=== PATIENT | male | born 1970 | race Caucasian/White ===

== ENCOUNTER 2020-05-07 08:38 | Inpatient (IN) ==
--- NOTE | 2020-04-16 22:10 | PAT Medication Instructions ---
Medication Instructions Date of Service April 16, 2020 Home Medications Medication Instructions Recorded ibuprofen 800 mg PO Q8H PRN #30 tab 11/09/18 allopurinol 300 mg PO QAM ibuprofen 800 mg PO Q8H PRN meloxicam 7.5 mg PO QAM Men's Daily Gummies] 400 mcg PO HS valsartan 80 mg PO QAM ASK your surgeon for instructions ibuprofen 800 mg PO Q8H PRN meloxicam 7.5 mg PO QAM DO NOT take the morning of surgery valsartan 80 mg PO QAM Take morning of surgery With a small sip of water, OTHERWISE NOTHING TO EAT OR DRINK AFTER MIDNIGHT: allopurinol 300 mg PO QAM Take evening before surgery Men's Daily Gummies 400 mcg PO HS Other Notes If you have any questions please call us at [phone] or [phone] or [phone] or [phone]
--- NOTE | 2020-04-17 09:08 | Anesthesiology Consultation ---
Date of Service April 17, 2020 Assessment & Plan (1) Encounter for pre-operative examination: *Per PAT assessment on 04/17: travel screen negative. No known Covid positive contacts. No history of Covid testing. No current Covid related symptoms.* - ETOH use: 3-4 drinks/day (typically beer + bourbon). Per patient, no AM ETOH use. Patient reports no issue with NPO AM DOS. Chart Review Chart Review: Acceptable Risk for Surgery and Patient seen in Pre Admission Testing Teaching & Discussion Pre-Anesthesia Teaching/Discussion Notes: Instructed NPO after midnight before surgery,except medications with 15 cc of water. Medication instructions pro vided according to the PAT guidelines. History Surgery Operation Date: 05/07/20 09:20 Proposed Procedures p Right Anterior Total Hip Arthroplasty - Octavio Cox DO Height/Weight Height: 5 ft 9.5 in Weight: 93.3 kg Allergies Allergy/AdvReac Type Severity Reaction Status Date / Time No Known Allergies Allergy Verified 04/16/20 13:07 Medications Home Medications Medication Instructions Recorded Confirmed Last Taken allopurinol 300 mg PO QAM 11/09/18 04/16/20 Unknown ibuprofen 800 mg PO Q8H PRN #30 tab 11/09/18 04/16/20 Unknown meloxicam 7.5 mg PO QAM 04/16/20 04/16/20 Unknown multivit with min-folic acid 400 mcg PO HS 04/16/20 04/16/20 Unknown [Men's Daily Gummies] valsartan 80 mg PO QAM 04/16/20 04/16/20 Unknown Past Medical History Medical History Gout Hearing deficit Hypertension Exercise / Class Metabolic Activity II 4-5 Yardwork/Stairs/Walk up hill Past Family History Family History Other No family history of adverse response to anesthesia Past Surgical History Surgical History History of right knee surgery Past Anesthesia History No Hx of Anesthesia Complications and No Family Hx of Anesthesia Complications History of PONV No Hx of PONV and No Hx of Motion Sickness Social History Smoking Status: Former smoker Do You Dip or Chew Tobacco: No Smoking End Date: quit 13 yrs ago Hx Alcohol Use: Yes Alcohol type: beer and hard liquor alcohol intake frequency: 3 or more drinks per day (3-4 drinks (typically beer + bourbon)) Hx Substance Use: No substance use type: does not use Review of Systems Patient denies chest pain, shortness of breath, dyspnea on exertion, fever, chills, reflux, cough, wheezing, palpitations. Physical Exam Vital Signs VITALS BP 148/93 P 97 TEMP 98.6 SP02 100% RA RESP 16 PHYSICAL Full neck and c-spine range of motion. Full TMJ range of motion. TMD 3 finger breaths Mallampati Score 3 Dentition: intact, upper front repaired Lungs: clear throughout to auscultation Cardiac: regular rate and rhythm, no murmurs noted Spine: normal Carotid arteries: negative bruit Extremities: no edema Trimmed clark Testing Laboratory Results 04/17/20 09:30 04/17/20 09:30 PT 10.5 Seconds (9.0-12.0) 04/17/20 09:30 INR 1.0 (0.9-1.1) 04/17/20 09:30 APTT 28.5 Seconds (21.0-31.0) 04/17/20 09:30 Hemoglobin A1c 4.7 % (4.5-5.6) 04/17/20 09:30 Urine Color Yellow 04/17/20 09:30 Urine Appearance Clear (Clear) 04/17/20 09:30 Urine pH 5.0 (4.5-7.5) 04/17/20 09:30 Ur Specific [place] 1.021 (1.000-1.030) 04/17/20 09:30 Urine Protein Negative (Negative) 04/17/20 09:30 Urine Glucose (UA) Negative (Negative) 04/17/20 09:30 Urine Ketones Negative (Negative) 04/17/20 09:30 Urine Nitrite Negative (Negative) 04/17/20 09:30 Ur Leukocyte Esterase Negative (Negative) 04/17/20 09:30 Blood Type A Positive 04/17/20 09:30 Antibody Screen NEGATIVE 04/17/20 09:30 Electrocardiogram Date: 04/17/20 NSR at 94bpm. "Normal ECG." Chest X-Ray Date: 04/17/20 Findings: + NAD
--- NOTE | 2020-04-17 09:44 | XRay Report ---
XR chest Pre-admission PA/Lat CLINICAL HISTORY: 49 years-old Male presenting with preoperative assessment. TECHNIQUE: PA and lateral views of the chest were obtained. COMPARISON: 11/09/2018. FINDINGS: Cardiomediastinal silhouette normal. Lungs and pleural spaces clear. Osseous structures normal. Upper abdomen normal. IMPRESSION: 1. No acute cardiopulmonary disease. ACT 112: Negative or not required by law. Electronically signed by: Robert Chan M.D. 04/17/2020 9:42 AM
[2020-04-17 10:26] LABS: Appearance Urine Clear (Clear); Bilirubin Urine Negative (Negative); Blood Urine Negative (Negative); Color Urine Yellow; Glucose Urine UA Negative (Negative); Ketones Urine Negative (Negative); Leukocyte Esterase Urine Negative (Negative); Nitrite Urine Negative (Negative); Protein Urine Negative (Negative); Specific Gravity Urine 1.021 (1.000-1.030); Urobilinogen Urine Negative (Negative)
[2020-04-17 10:33] LABS: Albumin Level 3.6 gm/dl (3.4-5.0); BUN Creatinine Ratio 16.9 (10-20); Calcium 9.7 mg/dl (8.5-10.1); Creatinine Clr Calc Pharmacy 110.5 ml/min; Est GFR (African American) 112.8; Est GFR (Non-African American) 97.3; Potassium 4.4 mmol/L (3.5-5.1)
[2020-04-17 10:40] LABS: Basophils # (auto) 0.04 K/uL (0-0.2); Eosinophils % (auto) 2.4 %; Hematocrit (blood only) 44.9 % (42-52); Hemoglobin 15.1 g/dL (14.0-18.0); Immature Granulocytes # (auto) 0.02 K/uL (0.00-0.02); Immature Granulocytes % (auto) 0.5 %; Lymphocytes # (auto) 1.34 K/uL (1.2-3.4); Lymphocytes % (auto) 32.5 %; Mean Corpuscular Hemoglobin 32.1 pg (25-34); Mean Corpuscular Hgb Conc 33.6 g/dL (32-36); Mean Corpuscular Volume 95.5 fL (80-100); Monocytes # (auto) 0.35 K/uL (0.11-0.59); Monocytes % (auto) 8.5 %; Neutrophils # (auto) 2.27 K/uL (1.4-6.5); Neutrophils % (auto) 55.1 %; Platelet Count 183 K/uL (130-400); White Blood Count 4.12 K/uL (4.8-10.8)
[2020-04-17 10:41] LABS: Partial Thromboplastin Time 28.5 Seconds (21.0-31.0); Prothrombin Time 10.5 Seconds (9.0-12.0)
[2020-04-17 11:06] LABS: Estimated Average Glucose 88 mg/dl; Hemoglobin A1C 4.7 % (4.5-5.6)
--- NOTE | 2020-04-17 15:53 | Electrocardiogram Report ---
Test Reason : Blood Pressure : / mmHG Vent. Rate : 094 BPM Atrial Rate : 094 BPM P-R Int : 136 ms QRS Dur : 078 ms QT Int : 348 ms P-R-T Axes : 053 071 057 degrees QTc Int : 435 ms Normal sinus rhythm Normal ECG When compared with ECG of 09-NOV-2018 21:47, No significant change was found Confirmed by Gianni Arevalo ([id number]) on 04/17/2020 3:52:42 PM Referred By: Octavio Cox Confirmed By:Manish Arevalo
--- NOTE | 2020-05-06 09:25 | History & Physical Report ---
Date of Service May 07, 2020 Assessment & Plan (1) Degenerative joint disease of right hip: I have indicated the patient for right anterior total hip replacement. The risks, benefits and complications of surgery were explained to the patient which include but not limited to infection, acute blood loss, DVT/PE, injury to nerves, vessels, bone, soft tissue, arthrofibrosis, chronic pain, failure of the prosthesis, hip dislocation, leg length discrepancy, need for additional surgery, cardiac and pulmonary events and . The patient wished to proceed with surgery and informed consent was obtained at this time. We will plan for ASA BID post-operatively for DVT prophylaxis. Upon discharge the patient will be discharged home with home health services. Appropriate clearances by PCP were obtained. History of Present Illness Chief Complaint: Right hip pain/AVN/djd Primary Care Provider: Luis Armando Coates DO The patient is a 50 year old male who presents with complaints of severe right hip pain, DJD/AVN. The patient has failed outpatient conservative treatments to this point which included NSAIDs and a home exercise/walking program. The patient's pain and limited function have progressed to the point where they severely hinder their activities of daily living and they no longer tolerate exercise programs. They are requesting to proceed with total hip replacement surgery. Allergies Allergy/AdvReac Type Severity Reaction Status Date / Time No Known Allergies Allergy Verified 05/07/20 09:02 Home Medications Home Medications Medication Instructions Recorded Confirmed Type allopurinol 300 mg PO QAM 11/09/18 05/07/20 History ibuprofen 800 mg PO Q8H PRN #30 tab 11/09/18 05/07/20 Rx meloxicam 7.5 mg PO QAM 04/16/20 05/07/20 History multivit with min-folic acid 400 mcg PO HS 04/16/20 05/07/20 History [Men's Daily Gummies] valsartan 80 mg PO QAM 04/16/20 05/07/20 History Past Med/Surg History Medical History Gout Hearing deficit Hypertension Surgical History History of right knee surgery Family History Other No family history of adverse response to anesthesia Social History Preferred Language: [place] Communication Ability: Effective Photography Editor Required: No Beliefs That Will Affect Care: None Current Living Situation: Spouse Other Information That Helps Us Care for You: No Feels Safe at Home: Yes Safety Concerns: Feels Safe At This Time Smoking Status: Former smoker Do You Dip or Chew Tobacco: No ; Smoking End Date: quit 13 yrs ago ; Second Hand Exposure: Yes (father smoked) ; Tobacco Cessation Education Requested by Patient: No Hx Alcohol Use: Yes Alcohol type: beer and hard liquor Hx Substance Use: No Review of Systems Review of Systems: All systems reviewed & are unremarkable except as noted in HPI & below Constitutional: as per Subjective / HPI Physical Exam Physical Exam: RLE NVSI +EHL/FHL/TA/GS SILT grossly, +2 DP pulse, compartments soft NT, limited painful ROM of the hip, antalgic gait. Constitutional: WD/WN, vitals as above Eyes: PERRL, conjunctivae normal, anicteric sclerae ENMT: external ear and nose normal, oropharynx normal Neck: trachea midline, no thyromegaly Respiratory: normal respiratory effort, lungs clear to auscultation Cardiovascular: RRR, no murmur, no edema Gastrointestinal (Abdomen): normal bowel sounds, soft, nontender, no hepatosplenomegaly Musculoskeletal: no cyanosis or clubbing, extremities motor strength 5/5 Skin: no rashes, warm and dry Neurologic: patellar DTR's 2+ bilat, sensation intact Psychiatric: A+Ox3, euthymic affect Lymphatic: no cervical or axillary lymphadenopathy Results & Data Results & Data ([facility]) Diagnostic Findings Multiple views of the hip demonstrates severe DJD with complete loss of the joint space. AVN involving the femoral head with cortical irregularity and collapse, +osteophytes, +sclerosis, +subchondral cysts.
[~2020-05-07 08:38] MED LIST: ACETAMINOPHEN 500 MG TAB PO SCH; BUPIVACAINE 0.5 % 5 MG/1 ML PF 10ML VIAL ONE; CEFAZOLIN 2000MG 2,000 MG/15 ML SYR IV SCH; CeleBREX 200 MG CAP PO SCH; FAMOTIDINE 20 MG TAB PO SCH; GABAPENTIN 900 MG DOSE PO SCH; LR 15ML/HR IV SCH; LR 500ML BOLUS, THEN 15ML/HR IV SCH; OXYCODONE HCL 10 MG TABCR (OXYCONTIN) PO SCH; ROPIVACAINE 0.5% HCL/PF 150 MG, BUPIVACAINE 0.5% MPF 30 ML, EPINEPHrine 30MG/30ML (OR U... INSTIL SCH; TRANEXAMIC ACID 1,000 MG **IV Intra-op IV SCH; TRANEXAMIC ACID 1,000 MG **IV Pre-op IV SCH; dexAMETHasone 4 MG TAB PO SCH
--- NOTE | 2020-05-07 09:15 | History & Physical Bridge Note ---
Date of Service May 07, 2020 History & Physical Bridge Note I have examined the patient, reviewed the History & Physical and in the interval since the performance of the History & Physical I have noted the following changes of clinical significance: no changes noted
[2020-05-07] MEDS ORDERED: PROPOFOL IV EMULSION 10 MG/ML 20 ML VIAL IV ONE (10:01)
[2020-05-07] MEDS ORDERED: LIDOCAINE HCL 2% 2 ML VIAL/AMP(20MG/ML) INFIL ONE (10:01)
[2020-05-07] MEDS ORDERED: MIDAZOLAM HCL 1 MG/ML 2ML VIAL ONE (10:01)
[2020-05-07] MEDS ORDERED: ORTHO JOINT ANESTHETIC ONE (10:21)
[2020-05-07] MEDS ORDERED: BACITRACIN INJ 50,000 UNIT VIAL ONE (10:21)
[2020-05-07] MEDS ORDERED: fentaNYL citrate 100 MCG/2 ML VIAL IV PRN (10:31)
[2020-05-07] MEDS ORDERED: ATROPINE SULFATE 0.1 MG/ML 10ML SYR IV PRN (10:31)
[2020-05-07] MEDS ORDERED: ePHEDrine sulfate 50 MG/ML AMP IV PRN (10:31)
[2020-05-07] MEDS ORDERED: ONDANSETRON INJ 2 MG/ML 2 ML VIAL IV PRN ×2 (10:31→14:13)
--- NOTE | 2020-05-07 12:45 | Post Operative Brief Note ---
Immediate Post Op Note v1 Date of Surgery May 07, 2020 Pre & Post Diagnosis Operation Date: 05/07/20 11:10 Pre-Op Diagnosis: Right Hip: Degenerative Joint Disease and Avascular Necrosis Post-Op Diagnosis: Right Hip: Degenerative Joint Disease and Avascular Necrosis I identified the patient and participated in the time-out.: Yes Procedure Operation Date: 05/07/20 11:10 Actual Procedures p Right Anterior Total Hip Arthroplasty--Uncemented(Right) - Octavio Cox DO Surgeon Octavio Cox DO Centrifugal Wax Molder Alfredo singer Estimated Blood Loss 135 Findings Consistent with Post-Op Diagnosis Fluids 1500 cc LR Specimens Femoral head Anesthesia Type Spinal MAC Complications none Disposition Disposition: Recovery Room Overlapping Procedure I was present for: the critical portions of procedure. I was immediately available: during the entire case. Back up surgeon: was not required during procedure.
--- NOTE | 2020-05-07 12:47 | Operative Report ---
Post Operative Report Pre & Post Diagnosis Operation Date: 05/07/20 11:10 Pre-Op Diagnosis: Right Hip: Degenerative Joint Disease and Avascular Necrosis Post-Op Diagnosis: Right Hip: Degenerative Joint Disease and Avascular Necrosis I identified the patient and participated in the time-out.: Yes Procedure Operation Date: 05/07/20 11:10 Actual Procedures p Right Anterior Total Hip Arthroplasty--Uncemented(Right) - Octavio Cox DO Surgeon Octavio Cox DO Bleaching Machine Operator Alfredo singer Estimated Blood Loss 135 Findings Consistent with Post-Op Diagnosis Fluids 1500 cc LR Specimens Femoral head Anesthesia Type Spinal MAC Complications none Disposition Disposition: Recovery Room Indications The patient is a 50-year-old male who presents with severe progressive right hip AVN/DJD who has failed outpatient conservative treatments. I indicated the patient for a anterior total hip replacement and the risks and benefits were explained in detail which include but not limited to infection, bleeding, blood clot, damage to surrounding bone, nerves, vessels, soft tissue, hip dislocation, failure of the prosthesis, leg length discrepancy, need for additional surgery and . The patient agreed to proceed with replacement of the hip and informed consent was obtained. Appropriate clearances were obtained. Description of Procedure COMPONENTS USED: [employer] hip system: Acetabulum size 52, femur size 6 high offset, femoral head 36-3, liner 5236, acetabular screw 25 mm x 1. DESCRIPTION OF PROCEDURE: Following satisfactory spinal anesthesia, the patient was placed supine on the OR table. The left leg was placed in the well leg romero and the right leg in the traction device. The right leg was prepared with ChloraPrep and draped sterilely. A surgical timeout was performed, patient identified and site lobito verified. Appropriate antibiotics were given. A standard anterior approach in the interval between the sartorius and tensor muscles was performed. Dissection was carried down through subcutaneous tissues. Electrocautery was utilized for hemostasis. Circumflex femoral vessels were identified, tied and ligated. The anterior capsular fat pad was removed and the capsulotomy was performed revealing the arthritic femoral neck and head. A femoral neck cut was made with reciprocating saw and the bone fragments removed. The acetabular self-retraining retractor was placed. Acetabular reaming was completed under fluoroscopic guidance, a 52 shell was impacted into an anatomic position and secured with a dome screw. Local anesthetic was placed and following irrigation, the polyethylene liner was placed. The femur was placed into position of external rotation, extension and a dduction. Femoral canal was prepared up to the size 6 high offset. Trial reduction with a 36 -3 neck length head showed good soft tissue tension, leg lengths restored, and good fit and fill of the proximal canal using fluoroscopic landmarks. The hip was dislocated. The trial component was removed. The final implant was placed. The hip was irrigated with sterile saline solution and reduced. A Betadine soak was performed. After 3 minutes, the hip was once more irrigated with copious sterile saline solution with bacitracin. Danay-incisional soft tissue was injected utilizing [place] [employer]ix which includes a combination of Ropivicaine 0.5% 150mg, Bupivicaine 0.5%/Epinephrine 1:200,000 30ml, Toradol 30mg, Dexamethasone 4mg, Ketamine 10mg, Clonidine 100mcg and NSS 30ml solution. The capsule was then closed with 1-0 Vicryl interrupted figure of eight sutures. The fascia was closed with a running suture of #1 Vicryl, the subcutaneous tissues with 2-0 Vicryl and the skin with a running subcuticular stitch of 3-0 V-Loc. Dermabond prineo and a dry dressing were applied. The patient tolerated the procedure well and was transported to PACU in stable condition. Due to the complex nature of the procedure, the entire surgery was performed with the operational assistance of Alfredo singer PA-C. The technical support assistant, under direct supervision, was involved in the actual performance of all aspects of the surgical procedure including patient positioning, hemostasis, tissue retraction, instrument management and wound closure. I attest to the content of the Intraoperative Record and any orders documented therein. Any exceptions are noted below.
--- NOTE | 2020-05-07 13:00 | Fluoroscopy Report ---
FL hip RT 1V CLINICAL HISTORY: RIGHT ANTERIOR HIP COMPARISON STUDY: None. FLUOROSCOPY TIME: 42 seconds. FLUOROSCOPIC IMAGES: 2 FINDINGS: Fluoroscopy was provided for a total right hip arthroplasty. Hardware is intact. There are no unexpected radiopaque foreign bodies. Acetabular screw is noted. No fracture is identified. IMPRESSION: Fluoroscopy provided for total right hip arthroplasty. ACT 112: Negative or not required by law. Electronically signed by: Abisai Hernandes M.D. 05/07/2020 12:59 PM
--- NOTE | 2020-05-07 13:30 | XRay Report ---
XR hip 1V RT w pelvis HISTORY: 50 years-old Male IN PACU - A/P PELVIS and LATERAL HIP right hip total joint arthroplasty COMPARISON: Fluoroscopic images of the right hip of same day TECHNIQUE: Single AP view of the pelvis with crosstable lateral view of the right hip FINDINGS: Right hip total joint arthroplasty demonstrates satisfactory alignment. Expected postoperative swelli ng with deep tissue air surrounds the right hip. No acute fracture, dislocation or opaque foreign bod y. There is at least mild left hip osteoarthritis. IMPRESSION: Satisfactory alignment of the right hip total joint arthroplasty. ACT 112: Negative or not required by law. The above report was generated using voice recognition software. It may contain grammatical, syntax o r spelling errors. Electronically signed by: Russel Meraz M.D. 05/07/2020 1:28 PM
[2020-05-07] MEDS ORDERED: OXYCODONE HCL IR 5 MG TAB (IMMEDIATE RELEASE) PO PRN (14:13)
[2020-05-07] MEDS ORDERED: METOCLOPRAMIDE HCL INJ 5 MG/ML 2 ML VIAL IV PRN (14:13)
[2020-05-07] MEDS ORDERED: MAGNESIUM HYDROXIDE SUSP 30 ML UDC PO PRN (14:13)
[2020-05-07] MEDS ORDERED: HYDROmorphone INJ 0.5 MG/0.5 ML SYR IV PRN (14:13)
[2020-05-07] MEDS ORDERED: SODIUM CHLORIDE 0.9% 1000ML 1,000 ML IV SCH (14:13)
[2020-05-07] MEDS ORDERED: bisacodyL 10 MG SUPP PR PRN (14:13)
[2020-05-07] MEDS ORDERED: NALOXONE HCL 0.4 MG/1 ML VIAL/CARP IV PRN (14:13)
--- NOTE | 2020-05-07 14:26 | Anesthesiology Progress Note ---
Date of Service May 07, 2020 Anesthesia Post Procedure Vital Signs Vital Signs: Temp Pulse Pulse Pulse Resp BP Pulse Ox 05/07/20 14:00 36.4 C L 83 16 166/67 H 05/07/20 13:45 79 16 135/90 96 05/07/20 13:35 36.6 C 73 19 133/95 96 05/07/20 13:25 82 22 142/91 H 96 05/07/20 13:15 79 19 146/93 H 96 05/07/20 13:05 82 18 131/99 98 05/07/20 12:59 36.4 C L 90 17 148/90 H 99 05/07/20 09:29 36.8 C 92 H 18 153/99 H 96 Pain Intensity Right Hip: Pain Intensity: 0 Transfer of Care Handoff Completed per policy Notes Mental Status: alert / awake / arousable and participated in evaluation Patient Amnestic to Procedure: Yes Nausea / Vomiting: adequately controlled Pain: adequately controlled Airway Patency, RR, SpO2: stable & adequate BP & HR: stable & adequate Hydration State: stable & adequate Neuraxial Anesthesia: was administered and sensory block is resolving Anesthetic Complications: no major complications apparent and Pt Satisfied with anesthetic care
[2020-05-07] MEDS: ACETAMINOPHEN 500 MG TAB PO SCH ×2 (14:49→20:49)
--- NOTE | 2020-05-07 15:42 | Orthopedic Progress Note ---
Date of Service May 07, 2020 Assessment & Plan (1) Degenerative joint disease of right hip: s/p Right anterior ELIAS -ancef x 24 -DVT ppx: SCDs, TEDs, ASA BID -WBAT RLE -PT/OT -PO XR demonstrates well aligned well fixed total hip prothesis without fracture/dislocation -am labs -DC planning Admission and Anticipated Discharge Date Admission Date: May 07, 2020 Subjective Post Operative Progress Note Patient seen sitting up in bed, comfortable, denies complaints, pain well controlled, no acute issues. Still feeling effects of spinal anesthesia. Review of Systems Review of Systems: All systems reviewed & are unremarkable except as noted in HPI & below Constitutional: as per Subjective / HPI Physical Exam Physical Exam: RLE limited secondary to spinal anesthesia, +2 DP pulse, compartment soft NT, dressing CDI Constitutional: WD/WN, vitals as above Results & Data ([facility]) Vital Signs (Past 12 Hours) Vital Signs Temp Pulse Pulse Pulse Pulse Resp BP 05/07/20 15:10 36.7 C 97 H 18 155/91 H 05/07/20 14:30 83 16 163/95 H 05/07/20 14:00 36.4 C L 83 16 166/67 H 05/07/20 13:45 79 16 135/90 05/07/20 13:35 36.6 C 73 19 133/95 05/07/20 13:25 82 22 142/91 H 05/07/20 13:15 79 19 146/93 H 05/07/20 13:05 82 18 131/99 05/07/20 12:59 36.4 C L 90 17 148/90 H 05/07/20 09:29 36.8 C 92 H 18 153/99 H Pulse Ox 05/07/20 15:10 97 05/07/20 14:30 94 05/07/20 14:00 05/07/20 13:45 96 05/07/20 13:35 96 05/07/20 13:25 96 05/07/20 13:15 96 05/07/20 13:05 98 05/07/20 12:59 99 05/07/20 09:29 96
[2020-05-07] MEDS: KETOROLAC 30 MG/ML VIAL IV SCH ×2 (16:51→20:49)
[2020-05-07] MEDS: CEFAZOLIN 2000MG 2,000 MG/15 ML SYR IV SCH (17:16)
[2020-05-07] MEDS: VALSARTAN 80 MG TAB PO SCH (18:41)
[2020-05-07] MEDS: DOCUSATE SODIUM 100 MG CAP PO SCH (20:49)
[2020-05-07] MEDS ORDERED: SENNA 8.6 MG TAB PO SCH (21:00)
[2020-05-08] MEDS: KETOROLAC 30 MG/ML VIAL IV SCH ×2 (03:15→11:25)
[2020-05-08] MEDS: CEFAZOLIN 2000MG 2,000 MG/15 ML SYR IV SCH (03:15)
[2020-05-08] MEDS: ACETAMINOPHEN 500 MG TAB PO SCH ×2 (05:39→13:11)
[2020-05-08 06:26] LABS: Basophils # (auto) 0.01 K/uL (0-0.2); Basophils % (auto) 0.1 %; Hemoglobin 13.4 g/dL (14.0-18.0); Immature Granulocytes # (auto) 0.02 K/uL (0.00-0.02); Immature Granulocytes % (auto) 0.2 %; Lymphocytes # (auto) 0.78 K/uL (1.2-3.4); Lymphocytes % (auto) 7.3 %; Mean Corpuscular Hemoglobin 31.8 pg (25-34); Mean Corpuscular Hgb Conc 33.5 g/dL (32-36); Mean Corpuscular Volume 94.8 fL (80-100); Monocytes # (auto) 0.83 K/uL (0.11-0.59); Monocytes % (auto) 7.7 %; Neutrophils % (auto) 84.7 %; Platelet Count 188 K/uL (130-400); RDW Coefficient of Variation 11.9 % (11.5-14.5); RDW Standard Deviation 40.9 fL (36.4-46.3); Red Blood Count 4.22 M/uL (4.7-6.1); White Blood Count 10.74 K/uL (4.8-10.8)
[2020-05-08 07:00] LABS: BUN Creatinine Ratio 23.6 (10-20); Calcium 8.4 mg/dl (8.5-10.1); Creatinine Clr Calc Pharmacy 119.8 ml/min; Est GFR (African American) 119.5; Est GFR (Non-African American) 103.1; Potassium 3.9 mmol/L (3.5-5.1)
--- NOTE | 2020-05-08 07:33 | Orthopedic Progress Note ---
Date of Service May 08, 2020 Assessment & Plan (1) Degenerative joint disease of right hip: s/p Right anterior ELIAS POD#1 -ancef x 24 -DVT ppx: SCDs, TEDs, ASA BID -WBAT RLE -PT/OT -PO XR demonstrates well aligned well fixed total hip prothesis without fracture/dislocation -am labs - as above, hgb 13.4 -DC planning - home with HH Admission and Anticipated Discharge Date Admission Date: May 07, 2020 Subjective Post Operative Progress Note Patient seen sitting up in bed, comfortable, denies complaints, pain well controlled, no acute issues. Denies F/C/N/V/SOB/CP. Review of Systems Review of Systems: All systems reviewed & are unremarkable except as noted in HPI & below Constitutional: as per Subjective / HPI Physical Exam Physical Exam: RLE NVSI +EHL/FHL/TA/GS SILT grossly, +2 DP pulse, compartments soft NT, dressing cdi. Constitutional: WD/WN, vitals as above Results & Data ([facility]) Vital Signs (Past 12 Hours) Vital Signs Temp Pulse Resp BP Pulse Ox 05/08/20 07:11 36.7 C 80 16 147/90 H 98 05/08/20 02:54 36.8 C 80 16 137/86 98 05/08/20 00:09 36.6 C 81 16 141/89 H 96 Laboratory Results 05/08/20 05/08/20 Range/Units 05:44 05:44 WBC 10.74 (4.8-10.8) K/uL RBC 4.22 L (4.7-6.1) M/uL Hgb 13.4 L (14.0-18.0) g/dL Hct 40.0 L (42-52) % MCV 94.8 (80-100) fL MCH 31.8 (25-34) pg MCHC 33.5 (32-36) g/dL RDW Std Deviation 40.9 (36.4-46.3) fL RDW Coeff of [place] 11.9 (11.5-14.5) % Plt Count 188 (130-400) K/uL MPV 10.0 (7.4-10.4) fL Immature Gran % (Auto) 0.2 % Neut % (Auto) 84.7 % Lymph % (Auto) 7.3 % [place] % (Auto) 7.7 % Eos % (Auto) 0.0 % Baso % (Auto) 0.1 % Immature Gran # (Auto) 0.02 (0.00-0.02) K/uL Neut # (Auto) 9.10 H (1.4-6.5) K/uL Lymph # (Auto) 0.78 L (1.2-3.4) K/uL [place] # (Auto) 0.83 H (0.11-0.59) K/uL Eos # (Auto) 0.00 (0-0.5) K/uL Baso # (Auto) 0.01 (0-0.2) K/uL Sodium 138 (136-145) mmol/L Potassium 3.9 (3.5-5.1) mmol/L Chloride 104 (98-107) mmol/L Carbon Dioxide 28 (21-32) mmol/L Anion Gap 6.0 (3-11) BUN 19 H (7-18) mg/dl Creatinine 0.82 (0.6-1.4) mg/dl Est Cr Clr Drug Dosing 119.8 ml/min Est GFR ( Amer) 119.5 Est GFR (Non-Af Amer) 103.1 BUN/Creatinine Ratio 23.6 H (10-20) Glucose 139 H (70-99) mg/dl Calcium 8.4 L (8.5-10.1) mg/dl
[2020-05-08] MEDS: VALSARTAN 80 MG TAB PO SCH (08:39)
[2020-05-08] MEDS: DOCUSATE SODIUM 100 MG CAP PO SCH (08:39)
[2020-05-08] MEDS ORDERED: VALSARTAN 80 MG TAB PO SCH (09:00)
[2020-05-08] MEDS ORDERED: allopurinoL 300 MG TAB PO SCH (09:00)
[2020-05-08] MEDS ORDERED: ASPIRIN 325 MG ECTAB PO SCH (09:00)
[2020-05-08] MEDS ORDERED: MULTIVITAMIN TAB PO SCH (09:00)
--- NOTE | 2020-05-08 17:03 | Discharge Summary ---
Date of Service May 08, 2020 Admission HPI Per Admitting Provider The patient is a 50 year old male who presents with complaints of severe right hip pain, DJD/AVN. The patient has failed outpatient conservative treatments to this point which included NSAIDs and a home exercise/walking program. The patient's pain and limited function have progressed to the point where they severely hinder their activities of daily living and they no longer tolerate exercise programs. They are requesting to proceed with total hip replacement surgery. Principal Diagnosis Right anterior total hip replacement -Right hip AVN/DJD Discharge Exam RLE NVSI +EHL/FHL/TA/GS SILT grossly, +2 DP pulse, compartments soft NT, dressing cdi. Constitutional WD/WN, vitals as above Discharge Data Allergies Allergy/AdvReac Type Severity Reaction Status Date / Time No Known Allergies Allergy Verified 05/07/20 09:02 Consultations 05/08/20 08:00 Consult Case Management - Discharge Planning Routine Procedures Performed Operation Date: 05/07/20 11:10 Actual Procedures p Right Anterior Total Hip Arthroplasty--Uncemented(Right) - Octavio Cox DO Ordered Studies 05/07/20 11:00 FL hip RT 1V Routine 05/07/20 11:10 FL fluoroscopy <1hr Routine Hospital Course (1) Degenerative joint disease of right hip: The patient is a 50 -year-old male who presents with long standing history of severe right hip AVN/DJD and failed outpatient conservative treatments. The patient's symptoms have progressed to the point where it has been difficult to perform even normal activities of daily living. I indicated the patient for a right anterior total hip arthroplasty, the risks, benefits and complications of the procedure include but not limited to infection, bleeding, damage to bone, nerves, vessels, surrounding soft tissue, may develop blood clots, loss of function, leg length discrepancy, dislocation, failure of the components, loosening of the components, the need for additional surgery and . The patient wished to proceed with surgery at this time and informed consent was obtained. Hospital Course: On 05/07/20 the patient was taken to the operating room, adequate anesthesia administered and underwent a right anterior total hip arthroplasty. The patient tolerated the procedure well and was taken to the PACU in stable condition. Post-operatively the patient was started on a DVT ppx medication and given appropriate IV antibiotics. Consults were placed to physical therapy, occupational therapy and case management. On POD#1, the patient did well overnight and their pain was well controlled. Labs were drawn and the Hgb was 13.4. The patient progressed well with PT. Dressings were changed at this time and the incision was clean, dry and intact. The patients hospital stay was relatively uneventful and they were deemed stable by the orthopedic team and consultants to be discharged home with HH on 05/08/20. Discharge Instructions: Upon discharge the patient may weight bear as tolerates through their operative extremity. They were instructed to keep the incision clean and dry at all times. The patient may shower but should not submerge the incision, avoid bat mely, pools and hot tubes. The patient was given a script for pain medication and should take as instructed. The patient was given a script for DVT ppx ASA BID and should take as directed. The patient was instructed to not drive or travel for long distances until cleared to do so. If the patient develops any symptoms of fevers, chills, nausea, vomiting, increased redness, swelling, pain or drainage from the surgical site, they should notify the office and/or proceed to the nearest emergency room. The patient should follow up in 10-14 days after surgery for their routine post-operative follow-up appointment and should call the office to confirm the date and time. s/p Right anterior ELIAS POD#1 -ancef x 24 -DVT ppx: SCDs, TEDs, ASA BID -WBAT RLE -PT/OT -PO XR demonstrates well aligned well fixed total hip prothesis without fracture/dislocation -am labs - as above, hgb 13.4 -DC planning - home with Total Time Total Time Spent Total Time Spent (In Minutes): 30 Discharge Plan Discharge Items Patient Disposition: Home - Home Health Services Reason For Visit: Osteoarthritis, Right Hip Discharge Diagnosis: Right anterior total hip replacement Condition on Discharge: Good Activity: Per Instructions section Lifting: Wait until after follow-up appointment Bathing: Keep incision dry Bathing Comment: No bathing, pools or hot tubs. Sexual Activity: Wait until after follow-up appointment Exercise/Sports: Wait until after follow-up appointment Driving/Machine Use: No driving Weightbearing: Full weightbearing Non-emergency contact: Primary Care Provider and Surgeon Call non-emergency contact if: you have any medication questions, your symptoms worsen, your pain is not controlled, your pain is worsening, your pain is unusual for you, your pain is concerning for you, you have a fever, your temperature is above 101, your wound has increased redness, your wound has increased drainage and your wound pain has increased Follow-up/Referrals: Luis Armando Coates, [Primary Care Provider] - Diet: Regular Addtl Attending Provider Instructions: ACTIVITY RECOMMENDATIONS: SELF CARE INSTRUCTIONS AFTER TOTAL HIP REPLACEMENT : Direct Anterior Approach Until the incision and soft tissues around your hip have healed, there is a possibility that the hip prosthesis could dislocate. A. Hip flexion ( Up & Down out of chair or steps ) may be difficult. This is normal. B. Numbness in front of the thigh is also normal for a few weeks. C. Use hand rails when walking on stairs. D. Wear low heeled shoes with non-slip soles. E. Be sure that your floors are free of things that could trip you - throw rugs, electrical cords, small objects. Avoid wet and waxed floors, especially with crutches and canes. F. Try to walk several times a day with rest periods between. G. Continue with all the exercises taught to you in the hospital. Again, make walking a part of your daily routine. SPECIAL CARE INSTRUCTIONS: VERY IMPORTANT TO READ AND REVIEW A. You may still be at risk for phlebitis and blood clots. 1. Wear surgical stockings (ARIK hose) for 2 weeks after surgery to improve circulation and reduce swelling. 2. Take Aspirin 325mg twice daily for 4 weeks or as directed by your doctor. This is your blood thinner. 3. High risk patients may be prescribed a stronger blood thinner if necessary. 4. If you are on Coumadin normally, your family doctor/laborer heading should monitor your blood work. Expect a phone call the day of or the day after bloodwork is drawn to adjust your dosage. B. You must take antibiotics before having dental work, bladder, bowel and other surgery. Your doctor will provide you with a permanent card to carry describing precautions. C. Call [facility] if you have a fever, redness or swelling around the incision, cloudy drainage from incision, or sudden increase in pain in your hip, not relieved by your regular pain medication. D. Please call the office at if you have any concerns or questions about your operation or recovery. * YOU MAY SHOWER, NO TUB BATHS UNTIL CLEARED BY YOUR DOCTOR. - Keep an extra close eye on the top portion of your incision. Be sure to keep clean & dry. * WEAR ARIK HOSE 20 HOURS PER DAY FOR 2 WEEKS. * YOU MAY PROGRESS FROM A WALKER, TO A CANE, TO INDEPENDENT AT YOUR OWN PACE. * MOST PATIENTS WILL HAVE HOME NURSING FOR THERAPY. IF YOU DECIDE TO DO OUTPATIENT PHYSICAL THERAPY, PLEASE SCHEDULE THIS 3 TIMES PER WEEK. * DERMABOND Prineo- This is a mesh tape dressing that is covered with glue. It should remain in place until the incision is properly healed, usually 10-14 days. This dressing is designed to naturally slough off. You may trim the excess mesh tape as it peels off. Incision may be briefly wet in a shower. Dry immediately by blotting with a clean, dry towel. Do not bath or swim until instructed by your doctor. Do not scratch, rub, or pick at the dressing. Do not apply any topical ointments or lotions until dressing is completely removed and/or instructed by your doctor. There may be a small piece of suture material at one end of your incision. Do not pull or trim this. If it is bothersome or catching on clothing, you may cover it with a band-aid. FOLLOW UP VISIT: If appointment is not already scheduled: Please call [facility] to make a follow-up appointment for 2 weeks after your surgery at . Pending Studies at Discharge: No Stand-Alone Forms: [facility], Opioid Pain Management, Smoking Cessation Medications and DC Order Prescriptions: New celecoxib [Celebrex] 200 mg Capsule 200 mg PO BID PRN (Reason: pain/inflammation) Qty: 28 RF: 0 acetaminophen 500 mg Tablet 1,000 mg PO Q8 PRN (Reason: pain) Qty: 90 RF: 0 aspirin 325 mg Tablet,Delayed Release (Dr/Ec) 325 mg PO BID Qty: 56 RF: 0 oxycodone 5 mg Tablet 5 mg PO Q6H MDD 4 PRN (Reason: pain) Qty: 30 RF: 0 sennosides [Senokot] 8.6 mg Tablet 17.2 mg PO HS PRN (Reason: constipation) Qty: 28 RF: 0 Continued valsartan 80 mg Tablet 80 mg PO QAM RF: 0 Men's Daily Gummies 200 mcg Tablet,Chewable 400 mcg PO HS RF: 0 allopurinol 300 mg tablet 300 mg PO QAM RF: 0 Discontinued meloxicam 7.5 mg Tablet 7.5 mg PO QAM RF: 0 ibuprofen 800 mg tablet 800 mg PO Q8H PRN (Reason: pain) Qty: 30 RF: 0 Discharge Orders: Discharge Order (Routine); Ordered 05/08/20 Ordered By: Octavio Felton/Other Patient Handouts: DVT, ED ANTI-EMBOLISM STOCKINGS Admission Data Admit Date/Time: 05/07/20 13:08 Attending Provider: Octavio Cox Admit Provider: Octavio Cox Primary Care Provider: Luis Armando Coates Other Providers: [facility],Home [facility] Other Interventions: Discharge Summary Assessment (RN) Last Done: 05/08/20 13:19 DC Date/Time DO NOT enter until pt leaves facility: 05/08/20 14:31
[2020-05-08] MEDS ORDERED: CeleBREX 200 MG CAP PO SCH (21:00)
== END 2020-05-08 14:31 | disposition home health service (06) | DRG 470 ==
LOC: EDBD → ASU 08:38 → 3E 13:08